=== PATIENT | male | born 1945 | race Two or more races ===

== ENCOUNTER 2017-12-08 08:55 | Outpatient (CLI) | payer OTHER | END 2017-12-08 13:03 | disposition home or self-care (01) | LOC: RAD 08:55 → RAD 501 08:55 | DX: M79.672 Pain in left foot (principal); G62.9 Polyneuropathy, unspecified; I10 Essential (primary) hypertension; M54.5 Low back pain; C61 Malignant neoplasm of prostate; E78.9 Disorder of lipoprotein metabolism, unspecified ==

== ENCOUNTER 2023-06-29 11:21 | Emergency (ER) | payer OTHER ==
[~2023-06-29] VITALS: Ht 175.3 cm; Wt 55.3 kg
[2023-06-29] MEDS ORDERED: EZALLOR SPRINKL10 MG (11:34)
[2023-06-29] MEDS ORDERED: TAMS0.4C (11:34)
[2023-06-29] MEDS ORDERED: ISOSORBIDE DINI30 MG (11:34)
[2023-06-29] MEDS ORDERED: CHILDREN'S ASPI81 MG (11:35)
[2023-06-29] MEDS ORDERED: FAMOTIDINE40 MG (11:35)
[2023-06-29] MEDS ORDERED: PLAVIX75 MG (11:35)
== END 2023-06-29 19:31 | disposition home or self-care (01) ==
LOC: ER 11:21
DX: K59.09 Other constipation (principal)
CPT/HCPCS: 74018; 74177; 99283; Q9965